=== PATIENT | female | born 1950 | race Caucasian/White ===

== ENCOUNTER → 2016-06-24 | Day surgery (SDC) | payer MEDICARE, OTHER ==
[~2016-06-24] VITALS: Ht 167.6 cm; Wt 78.1 kg
[~2016-06-24] MED LIST: ATIVAN2 MG PO; CARAFATE1 GM PO; CARDIZEM CD (T120 MG PO; COLACE100 MG PO; CYMBALTA30 MG PO; DEXILANT30 MG PO; DULOXETINE HCL60 MG PO; HYDROCHLOROTH12.5 M1 PO; IBUPROFEN800 MG PO; K-TAB ER20 MEQ PO; LAMOTRIGINE100 MG PO; LEVAQUIN500 MG PO; LISINOPRIL5 MG PO; MOXEZA3 ML OPHTH; MULTIVITAMINS1 EAC2 PO; NEURONTIN400 MG PO; NORCO 5-325 TA1 EACH PO; PERPHENAZINE8 MG PO; PROVENTIL OR V6.7 GM INH; VITAMIN C1000 MG PO; ZINC50 M1 PO
--- NOTE | ~2016-06-24 | OR ---
PATIENT'S NAME: TOBIAS MAZARIEGOS [facility] AGE: 65 Y [address] ROOM: [place] [address] LOCATION: [facility] [place] [facility] [place] ADMIT DATE: 06/24/2016 OR/Procedure Report DISCHARGE DATE: FAMILY PHYSICIAN: Theresa Calero MD ATTENDING PHYSICIAN: SUNI MURRELL SURGEON: Suni Murrell MD WASTEWATER PROJECT ENGINEER: None. DATE OF PROCEDURE: 06/24/2016 PREOPERATIVE DIAGNOSIS: Stress urinary incontinence. POSTOPERATIVE DIAGNOSIS: Stress urinary incontinence. PROCEDURES: 1. Pubovaginal sling utilizing the TVT retropubic system ([employer]vantage Fit) by [employer]. 2. Cystourethroscopy. ANESTHESIA ADMINISTERED: General endotracheal anesthesia. INDICATIONS FOR PROCEDURE: The patient is a pleasant 65-year-old female with history of stress urinary incontinence. The patient was explained the risks, benefits, and alternatives to the above procedure and wished to proceed and consented freely. DESCRIPTION OF OPERATION: The patient brought back to the operating room, where she was placed on the operating room table in the supine position. A surgical time-out was called where patient identification, surgical site, and procedure was then verified. We also did verify that the patient received an IV Levaquin antibiotic within an hour of beginning the procedure. The patient then underwent successful administration of general endotracheal anesthesia. The patient was then converted to the dorsal lithotomy position and her genital area was prepped and draped in the usual sterile fashion. A Orona catheter was then placed per urethra and a José Luis retractor in the vagina posteriorly. Local anesthetic was injected into the anterior vaginal wall as well as laterally. I also injected local anesthetic in the suprapubic area. A midline vaginal incision was made just below the urethral meatus. Metzenbaum scissors were used to create a tissue plane between the bladder and the vaginal wall and urethra. Once the tissue plane was developed using a push spread technique, I dissected up to the undersurface of the ischiopubic rami. I then used a catheter guide to displace the bladder neck and the urethra. The TVT trocar was then used to perforate the endopelvic fascia and then was carefully passed it through the space of Retzius and perforating the rectus sheath and muscle. Again, this was passed from the bottom to top approach. A small incision was then made on the right-hand side in her PATIENT'S NAME: TOBIAS MAZARIEGOS [facility] AGE: 65 Y [address] ROOM: [place] [address] LOCATION: [facility] [place] [facility] [place] ADMIT DATE: 06/24/2016 OR/Procedure Report DISCHARGE DATE: FAMILY PHYSICIAN: Theresa Calero MD ATTENDING PHYSICIAN: SUNI MURRELL suprapubic region where the needle tip was exposed through the incision. A hemostat was then placed on the sheath to temporarily secure it extra- abdominally. The trocar was then removed leaving the mesh and the sheath in place. Identical passage of the trocar was performed on the left side in the same fashion. The Orona catheter was then removed and cystoscopy was performed using the 70-degree lens and the bladder was distended to approximately 300 mL. The bladder did appear to be normal with her ureteral orifices to be in their normal orthotopic location. There was no evidence of any bladder tumors, cellules, or diverticula. There was no evidence of perforation of the bladder and both trocars gave minimal indentation to the bladder. I then adjusted the tension on the sling by pulling the trocars upward, then removed the surrounding plastic sheath and trocar, and the patient did not have any significant leakage per urethra with some Valsalva. I then cut the mesh and flushed with the skin. I inspected for hemostasis, which was excellent. I did irrigate the incision sites copiously with antibiotic irrigation and then placed some Gelfoam in the vaginal incision and closed the vaginal wall with a running 4-0 Vicryl suture. The skin puncture sites were closed with 4-0 Monocryl suture in a subcuticular fashion and covered with Dermabond. The patient did tolerate the procedure well. The patient was then taken out of the lithotomy position where she was then awoken from monitored anesthesia care. She was then transferred to the recovery bed and transported to the recovery room in good condition. COMPLICATIONS: None. ESTIMATED BLOOD LOSS: Less than 25 mL. DRAINS: None. SPECIMENS: None. FOLLOWUP PLAN: We will plan to have the patient monitored in the recovery room where she will be given a trial of void. If she passes a trial of void, we will plan to see her back for followup in [facility] in 6 weeks. SUNI MURRELL MD GP/darshana /[id number] PATIENT'S NAME: TOBIAS MAZARIEGOS [facility] AGE: 65 Y [address] ROOM: [place] [address] LOCATION: [facility] [place] [facility] [place] ADMIT DATE: 06/24/2016 OR/Procedure Report DISCHARGE DATE: FAMILY PHYSICIAN: Theresa Calero MD ATTENDING PHYSICIAN: SUNI MURRELL CC: Theresa Calero MD d: 06/24/[id number] t: 06/24/[id number], OPERATIVE SUMMARY
[2016-06-24 08:50] LABS: BASOPHIL # 0.1 K/uL (0.0-0.2); BASOPHIL % 0.9 %; EOSINOPHIL # 0.3 K/uL (0.0-0.5); HEMATOCRIT 37.2 % (33.0-46.0); HEMOGLOBIN 12.7 g/dL (10.0-15.0); IMMATURE GRANULOCYTE % 0.3 %; LYMPHOCYTE # 2.6 K/uL (0.8-4.0); LYMPHOCYTE % 33.2 %; MCH 30.3 pg (27.0-34.0); MCHC 34.1 gm/dL (32.0-36.5); MCV 88.8 fl (83.0-98.0); MONOCYTE # 0.6 K/uL (0.0-1.0); MONOCYTE % 7.2 %; MPV 8.5 fl (9.4-12.4); NEUTROPHIL # (ANC) 4.2 K/uL (1.8-7.8); NEUTROPHIL % 54.4 %; NRBC % 0 /100WBC (0-0.00); PLATELET COUNT 280 K/uL (150-450); RBC 4.19 M/uL (3.50-5.50); RDW-CV 13.4 % (11.9-14.6); WBC 7.8 K/uL (4.0-11.0)
[2016-06-24 09:08] LABS: ANION GAP 13.1 (10.0-19.0); CALCIUM 9.9 mg/dL (8.5-10.5); CREATININE 1.9 mg/dL (0.5-1.1); POTASSIUM 4.1 mMol/L (3.7-5.1); TOTAL BILIRUBIN 0.3 mg/dL (0.0-1.5); TOTAL PROTEIN 7.6 g/dL (6.0-8.4)
== END | disposition disaster alternative care site (69) ==
LOC: GPOC 05-26 14:00 → GSDC 05-31 07:00
PROVIDERS: Urology
PROC: 0TSD0ZZ Reposition Urethra, Open Approach (ICD-10-PCS; principal; 2016-06-24)
DX: N39.3 Stress incontinence (female) (male) (principal); I10 Essential (primary) hypertension; K21.9 Gastro-esophageal reflux disease without esophagitis; F31.9 Bipolar disorder, unspecified; F32.9 Major depressive disorder, single episode, unspecified; G25.81 Restless legs syndrome; E87.6 Hypokalemia; E78.5 Hyperlipidemia, unspecified; N18.9 Chronic kidney disease, unspecified; Z87.891 Personal history of nicotine dependence; Z88.5 Allergy status to narcotic agent; Z88.1 Allergy status to other antibiotic agents; Z88.8 Allergy status to other drugs, medicaments and biological substances; Z79.899 Other long term (current) drug therapy; Z90.49 Acquired absence of other specified parts of digestive tract; Z98.890 Other specified postprocedural states
CPT/HCPCS: J1956; J7120